=== PATIENT | male | born 1995 | race Two or more races ===

== ENCOUNTER 2018-07-17 12:02 | Emergency (ER) | payer SELFPAY ==
--- NOTE | 2018-07-17 14:23 | ED Physician Documentation ---
PD HPI NVD - Stated complaint Stated Complaint: DIZZY/VOMITING - Chief complaint Chief Complaint: Abd Pain - History obtained from History obtained from: Patient - History of Present Illness Timing - onset: How many days ago (3) Timing - duration: Days (3) Timing - details: Gradual onset, Still present Associated symptoms: Dizzy (with head movement). No: Fever, Chest pain, Near syncope / syncope, Loss of appetite Contributing factors: No: Sick contact, Bad food Improved by: Laying still Worsened by: Moving Similar symptoms before: Has not had sx before Recently seen: Not recently seen Review of Systems Constitutional: denies: Fever Ears: denies: Loss of hearing, Ear pain, Tinnitus/ringing Nose: reports: Sinus pressure / pain. denies: Rhinorrhea / runny nose, Congestion Throat: denies: Sore throat Respiratory: denies: Cough GI: reports: Nausea, Vomiting (tirggered by dizziness). denies: Abdominal Pain, Diarrhea Skin: denies: Rash, Lesions Neurologic: reports: Headache (mild). denies: Focal weakness, Numbness, Altered mental status PD PAST MEDICAL HISTORY - Past Medical History Cardiovascular: None Respiratory: None Neuro: None Endocrine/Autoimmune: None - Present Medications Home Medications: Ambulatory Orders Medication Instructions Recorded Confirmed Amoxicillin 500 mg PO TID #21 capsule 07/17/18 Dexamethasone [Decadron] 4 mg PO DAILY #5 tablet 07/17/18 Meclizine [Antivert] 25 mg PO Q6H PRN #30 tablet 07/17/18 Ondansetron Odt [Zofran] 4 mg TL Q6H PRN #10 tablet 07/17/18 - Allergies Allergies/Adverse Reactions: Allergies Allergy/AdvReac Type Severity Reaction Status Date / Time No Known Drug Allergies Allergy Verified 07/17/18 12:20 PD ED PE NORMAL - Vitals Vital signs reviewed: Yes - General General: Alert and oriented X 3, Well developed/nourished - HEENT HEENT: PERRL, EOMI (nystagmus to the left), Ears normal, Pharynx benign - Neck Neck: Supple, no meningeal sign, No adenopathy - Cardiac Cardiac: RRR, No murmur - Respiratory Respiratory: Clear bilaterally - Derm Derm: Normal color, Warm and dry - Neuro Neuro: Alert and oriented X 3, manager site 2-12 intact, No motor deficit, No sensory deficit, Normal speech Eye Opening: Spontaneous Motor: Obeys Commands Verbal: Oriented GCS Score: 15 Results - Vitals Vitals: Oxygen O2 Source Room air - Labs Labs: Laboratory Tests 07/17/18 16:30 Sodium 140 Potassium 3.8 Chloride 109 Carbon Dioxide 20 L Anion Gap 11.0 BUN 21 H Creatinine 0.7 Estimated GFR (MDRD) 142 Glucose 93 Calcium 8.6 Total Bilirubin 1.0 AST 21 ALT 22 Alkaline Phosphatase 82 Total Protein 7.6 Albumin 4.2 Globulin 3.4 Albumin/Globulin Ratio 1.2 Lipase 27 - Rads (name of study) head CT Radiology: Prelim report reviewed (no acute findings), See rad report PD MEDICAL DECISION MAKING - ED course Complexity details: considered differential (positional vertigo but he says he feels slightly slow thinking, so can get CT as well. Doubt cerebellar infarct as a Dx, so I feel CT would be good enough, to show edema, tumors, mass effect.), d/w patient Departure - Departure Disposition: 01 Home, Self Care Clinical Impression: Vertigo, Dehydration Nausea & vomiting Qualifiers: Vomiting type: unspecified Vomiting Intractability: non-intractable Qualified Code(s): R11.2 - Nausea with vomiting, unspecified Acute labyrinthitis Qualifiers: Laterality: unspecified laterality Qualified Code(s): H83.09 - Labyrinthitis, unspecified ear Condition: Stable Record reviewed to determine appropriate education?: Yes Instructions: ED Vertigo Unspecified Prescriptions: Amoxicillin 500 mg PO TID #21 capsule Dexamethasone [Decadron] 4 mg PO DAILY #5 tablet Meclizine [Antivert] 25 mg PO Q6H PRN #30 tablet PRN Reason: Vertigo Ondansetron Odt [Zofran] 4 mg TL Q6H PRN #10 tablet PRN Reason: Nausea / Vomiting Comments: Your head scan is normal. No signs of intracranial cause for the headache and nausea and dizziness. It sounds likely to be an inner ear infection. Was treated with Decadron steroid anti-inflammatory. Ondansetron for nausea. Meclizine every 6-8 hours if needed for dizziness. Amoxicillin antibiotic 3 times a day for a week. Off work for a day or 2 if needed and progress activity as able once you are feeling better.Recheck if still not better over the next 4-5 days. Forms: Activity restrictions Discharge Date/Time: 07/17/18 18:05
[2018-07-17] MEDS ORDERED: ONDANSETRON 4 MG/2 ML VIAL IVP STA (14:44)
[2018-07-17] MEDS ORDERED: SODIUM CHLORIDE 0.9% 1,000 ML IV ONE ×2 (14:44→14:45)
[2018-07-17] MEDS ORDERED: MECLIZINE 12.5 MG TABLET PO STA (14:44)
[2018-07-17] MEDS ORDERED: DEXAMETHASONE 10 MG/ML VIAL IVP STA (14:44)
--- NOTE | 2018-07-17 15:43 | CT Report ---
Reason: dizziness and vomtiing; headache posterior Procedure Date: 07/17/2018 Accession Number: [id number] / [id number] Procedure: CT - HEAD WO CPT Code: FULL RESULT: EXAM: CT HEAD EXAM DATE: 07/17/2018 02:59 PM. CLINICAL HISTORY: Dizziness and vomiting; headache posterior. COMPARISON: None. TECHNIQUE: Multiaxial CT images were obtained from the foramen magnum to the vertex. Reformats: Sagittal and coronal. IV contrast: None. In accordance with CT protocol optimization, one or more of the following dose reduction techniques were utilized for this exam: automated exposure control, adjustment of mA and/or KV based on patient size, or use of iterative reconstructive technique. FINDINGS: Parenchyma: No intraparenchymal hemorrhage. No evidence of mass, midline shift, or CT findings of infarction. Monahan-white differentiation is distinct. Extraaxial Spaces: Normal for age. No subdural or epidural collections identified. Ventricles: Normal in size and position. Sinuses and Orbits: Imaged paranasal sinuses, orbits, and mastoids show no significant abnormality. Bones: No evidence of fracture or calvarial defect. Other: None. IMPRESSION: Normal head CT. [facility]
[2018-07-17 16:47] LABS: ALBUMIN 4.2 g/dL (3.2-5.5); ALBUMIN/GLOBULIN RATIO 1.2 (1.0-2.2); CALCIUM 8.6 mg/dL (8.5-10.3); CREATININE 0.7 mg/dL (0.6-1.2); TOTAL PROTEIN 7.6 g/dL (6.7-8.2)
[2018-07-17 18:00] VITALS: BP 117/71
== END 2018-07-17 18:05 | disposition home or self-care (01) ==
LOC: ED 12:02
DX: R42 Dizziness and giddiness (principal); E86.0 Dehydration; R11.2 Nausea with vomiting, unspecified; H83.09 Labyrinthitis, unspecified ear
CPT/HCPCS: 36415; 70450; 80053; 83690; 96361; 96374; 99283; 99284; A9270